=== PATIENT | female | born 1930 | race Caucasian/White ===

== ENCOUNTER 2018-08-10 14:06 | Emergency (ER) | payer OTHER ==
[~2018-08-10] VITALS: Ht 137.2 cm; Wt 40.1 kg
[2018-08-10 14:24] VITALS: BP 114/55
--- NOTE | 2018-08-10 14:25 | NUR ---
PT ACCOMPANIED BY GRANDDAUGHTER AND COMPLAINTS OF COUGH WITH SPUTUM FOR 3 DAYS. DENIES N/V/D; SKIN IS PINK/WARM/DRY; AAOX4 WITH EVEN AND STEADY GAIT; LUNGS CLEAR BL; HR EVEN AND REGULAR; PT DENIES ANY FEVER, CP, SOB AT THIS TIME; VSS; PATIENT POSITIONED FOR COMFORT; HOB ELEVATED; BEDRAILS UP X2; BED DOWN. ER MD MADE AWARE OF PT STATUS. GRANDDAUGHTER IS AT BEDSIDE.
[2018-08-10 16:10] VITALS: BP 110/52
--- NOTE | 2018-08-10 16:15 | NUR ---
Patient discharged with v/s stable. Written and verbal after care instructions given and explained TO her granddaughter. Patient alert, oriented, and graddaughter verbalized understanding of instructions. Ambulatory with steady gait. All questions addressed prior to discharge. ID band removed. Patient advised to follow up with PMD. Rx of Augmentin and Promethazine Hydrochloride/Dextromethorphan Hydrobromide given. Patient educated on indication of medication including possible reaction and side effects. Opportunity to ask questions provided and answered.
== END 2018-08-10 16:15 | disposition home or self-care (01) ==
LOC: MED 14:06
DX: J02.8 Acute pharyngitis due to other specified organisms (principal); B96.89 Other specified bacterial agents as the cause of diseases classified elsewhere; E11.9 Type 2 diabetes mellitus without complications; I10 Essential (primary) hypertension; E07.9 Disorder of thyroid, unspecified
CPT/HCPCS: 71045; 99283; Q0092